=== PATIENT | female | born 1970 | race Caucasian/White ===

== ENCOUNTER 2019-03-26 17:16 | Emergency (ER) | payer OTHER ==
[~2019-03-26] VITALS: Ht 172.7 cm; Wt 77.1 kg
[2019-03-26 17:28] VITALS: Ht 172.7 cm; Wt 77.1 kg
[2019-03-26 21:02] VITALS: BP 139/87
== END 2019-03-26 21:02 | disposition short-term general hospital (02) ==
LOC: ED 17:16
DX: S16.8XXA Other specified injury of muscle, fascia and tendon at neck level, initial encounter (principal); I10 Essential (primary) hypertension; Z90.89 Acquired absence of other organs; V49.9XXA Car occupant (driver) (passenger) injured in unspecified traffic accident, initial encounter; Y93.I9 Activity, other involving external motion; Y92.413 State road as the place of occurrence of the external cause; Y99.8 Other external cause status